=== PATIENT | female | born 1970 | race Two or more races ===

== ENCOUNTER 2024-02-29 14:26 | Outpatient (RCR) | payer MEDICAID, SELFPAY | END 2024-03-23 23:59 | disposition home or self-care (01) | LOC: SCTC 14:26 | PROVIDERS: PCP Nurse Practitioner Family; Referring Provider Nurse Practitioner Family; Visit Provider Nurse Practitioner Family | DX: E53.8 Deficiency of other specified B group vitamins (principal); Z87.11 Personal history of peptic ulcer disease; Z87.19 Personal history of other diseases of the digestive system; I10 Essential (primary) hypertension | CPT/HCPCS: 96372; 99212; J3420; G0463 ==

== ENCOUNTER 2024-03-28 14:34 | Outpatient (RCR) | payer MEDICAID, SELFPAY | END 2024-04-23 23:59 | disposition home or self-care (01) | LOC: SCTC 14:34 | PROVIDERS: PCP Nurse Practitioner Family; Referring Provider Nurse Practitioner Family; Visit Provider Nurse Practitioner Family | DX: E53.8 Deficiency of other specified B group vitamins (principal) | CPT/HCPCS: 96372; J3420 ==

== ENCOUNTER 2024-04-25 09:31 | Outpatient (RCR) | payer MEDICAID, SELFPAY | END 2024-05-24 23:59 | disposition home or self-care (01) | LOC: SCTC 09:31 | PROVIDERS: PCP Nurse Practitioner Family; Referring Provider Nurse Practitioner Family; Visit Provider Internal Medicine Hematology & Oncology | DX: E53.8 Deficiency of other specified B group vitamins (principal) | CPT/HCPCS: 96372; J3420 ==

== ENCOUNTER 2024-05-27 14:51 | Outpatient (RCR) | payer MEDICAID, SELFPAY | END 2024-06-21 23:59 | disposition home or self-care (01) | LOC: SCTC 14:51 | PROVIDERS: PCP Nurse Practitioner Family; Referring Provider Nurse Practitioner Family; Visit Provider Internal Medicine Hematology & Oncology | DX: E53.8 Deficiency of other specified B group vitamins (principal) | CPT/HCPCS: 96372; J3420 ==

== ENCOUNTER 2024-06-24 14:29 | Outpatient (RCR) | payer MEDICAID, SELFPAY | END 2024-07-22 23:59 | disposition home or self-care (01) | LOC: SCTC 14:29 | PROVIDERS: PCP Nurse Practitioner Family; Referring Provider Nurse Practitioner Family; Visit Provider Internal Medicine Hematology & Oncology | DX: E53.8 Deficiency of other specified B group vitamins (principal); Z87.11 Personal history of peptic ulcer disease; Z87.19 Personal history of other diseases of the digestive system | CPT/HCPCS: 96372; J3420 ==

== ENCOUNTER 2024-07-25 14:40 | Outpatient (RCR) | payer MEDICAID, SELFPAY | END 2024-08-21 23:59 | disposition home or self-care (01) | LOC: SCTC 14:40 | PROVIDERS: PCP Nurse Practitioner Family; Referring Provider Nurse Practitioner Family; Visit Provider Internal Medicine Hematology & Oncology | DX: E53.8 Deficiency of other specified B group vitamins (principal) | CPT/HCPCS: 96368; 96372; J3420 ==

== ENCOUNTER 2024-08-26 14:36 | Outpatient (RCR) | payer MEDICAID, SELFPAY | END 2024-09-21 23:59 | disposition home or self-care (01) | LOC: SCTC 14:36 | PROVIDERS: PCP Nurse Practitioner Family; Referring Provider Nurse Practitioner Family; Visit Provider Internal Medicine Hematology & Oncology | DX: E53.8 Deficiency of other specified B group vitamins (principal) | CPT/HCPCS: 96372; J3420 ==

== ENCOUNTER 2024-09-23 14:36 | Outpatient (RCR) | payer MEDICAID, SELFPAY | END 2024-10-21 23:59 | disposition home or self-care (01) | LOC: SCTC 14:36 | PROVIDERS: PCP Nurse Practitioner Family; Referring Provider Nurse Practitioner Family; Visit Provider Internal Medicine Hematology & Oncology | DX: E53.8 Deficiency of other specified B group vitamins (principal) | CPT/HCPCS: 96372; J3420 ==

== ENCOUNTER 2024-10-23 14:40 | Outpatient (RCR) | payer MEDICAID, SELFPAY | END 2024-11-21 23:59 | disposition home or self-care (01) | LOC: SCTC 14:40 | PROVIDERS: PCP Nurse Practitioner Family; Referring Provider Nurse Practitioner Family; Visit Provider Internal Medicine Hematology & Oncology | DX: E53.8 Deficiency of other specified B group vitamins (principal) | CPT/HCPCS: 96372; J3420 ==

== ENCOUNTER 2024-11-27 14:16 | Outpatient (RCR) | payer MEDICAID, SELFPAY | END 2024-12-22 23:59 | disposition home or self-care (01) | LOC: SCTC 14:16 | PROVIDERS: PCP Nurse Practitioner Family; Referring Provider Nurse Practitioner Family; Visit Provider Internal Medicine Hematology & Oncology | DX: E53.8 Deficiency of other specified B group vitamins (principal) | CPT/HCPCS: 96372; J3420 ==

== ENCOUNTER 2024-12-25 14:37 | Outpatient (RCR) | payer MEDICAID, SELFPAY | END 2025-01-21 23:59 | disposition home or self-care (01) | LOC: SCTC 14:37 | PROVIDERS: PCP Nurse Practitioner Family; Referring Provider Nurse Practitioner Family; Visit Provider Internal Medicine Hematology & Oncology | DX: E53.8 Deficiency of other specified B group vitamins (principal) | CPT/HCPCS: 96372; J3420 ==

== ENCOUNTER 2025-01-22 13:59 | Outpatient (RCR) | payer MEDICAID, SELFPAY | END 2025-02-21 23:59 | disposition home or self-care (01) | LOC: SCTC 13:59 | PROVIDERS: PCP Nurse Practitioner Family; Referring Provider Nurse Practitioner Family; Visit Provider Internal Medicine Hematology & Oncology | DX: E53.8 Deficiency of other specified B group vitamins (principal) | CPT/HCPCS: 96372; J3420 ==

== ENCOUNTER 2025-02-27 14:00 | Outpatient (RCR) | payer MEDICAID, SELFPAY | END 2025-03-23 23:59 | disposition home or self-care (01) | LOC: SCTC 14:00 | PROVIDERS: PCP Nurse Practitioner Family; Referring Provider Nurse Practitioner Family; Visit Provider Nurse Practitioner Family | DX: E53.8 Deficiency of other specified B group vitamins (principal); Z87.11 Personal history of peptic ulcer disease; K76.0 Fatty (change of) liver, not elsewhere classified; E66.9 Obesity, unspecified; Z68.39 Body mass index [BMI] 39.0-39.9, adult | CPT/HCPCS: 96372; 99212; J3420; G0463 ==

== ENCOUNTER 2025-03-27 14:45 | Outpatient (RCR) | payer MEDICAID, SELFPAY | END 2025-04-23 23:59 | disposition home or self-care (01) | LOC: SCTC 14:45 | PROVIDERS: PCP Nurse Practitioner Family; Referring Provider Nurse Practitioner Family; Visit Provider Internal Medicine Hematology & Oncology | DX: E53.8 Deficiency of other specified B group vitamins (principal); D61.818 Other pancytopenia; K76.0 Fatty (change of) liver, not elsewhere classified; E66.9 Obesity, unspecified; Z68.39 Body mass index [BMI] 39.0-39.9, adult | CPT/HCPCS: 96372; 99212; J3420; G0463 ==